=== PATIENT | female | born 1995 | race Caucasian/White ===

== ENCOUNTER 2021-09-23 23:03 | Emergency (ER) | payer SELFPAY ==
[~2021-09-23] VITALS: Ht 160 cm; Wt 43.1 kg
[2021-09-23 23:15] VITALS: BP 108/58
[2021-09-24] MEDS ORDERED: methocarbamoL 500 MG TAB PO ONE (00:50)
[2021-09-24] MEDS ORDERED: LIDOCAINE 5% 1 EA PATCH TP SCH (00:50)
[2021-09-24] MEDS ORDERED: IBUPROFEN 800 MG TAB PO ONE (00:50)
[2021-09-24] MEDS ORDERED: predniSONE 20 MG TAB PO ONE (00:50)
[2021-09-24] MEDS ORDERED: METH-1681 PO (02:19)
[2021-09-24] MEDS ORDERED: PRED20TA5 PO (02:19)
[2021-09-24] MEDS ORDERED: LID5T TP (02:19)
[2021-09-24] MEDS ORDERED: NAPR-54 PO (02:19)
[2021-09-24 02:34] VITALS: BP 111/61
== END 2021-09-24 02:34 | disposition home or self-care (01) ==
LOC: MED 23:03
DX: S39.012A Strain of muscle, fascia and tendon of lower back, initial encounter (principal); D64.9 Anemia, unspecified; Z79.899 Other long term (current) drug therapy; X58.XXXA Exposure to other specified factors, initial encounter; Y93.89 Activity, other specified; Y92.89 Other specified places as the place of occurrence of the external cause; Y99.8 Other external cause status
CPT/HCPCS: 72110; 72220; 99284; J7512